=== PATIENT | male | born 1990 | race Caucasian/White ===

== ENCOUNTER 2017-07-21 05:48 | Emergency (ER) | payer OTHER, BC ==
[~2017-07-21] VITALS: Ht 175.3 cm; Wt 68.0 kg
== END 2017-07-21 07:21 | disposition home or self-care (01) ==
LOC: ED 05:48
PROC: 0HQ1XZZ Repair Face Skin, External Approach (ICD-10-PCS; principal; 2017-07-21)
DX: S01.81XA Laceration without foreign body of other part of head, initial encounter (principal); S61.219A Laceration without foreign body of unspecified finger without damage to nail, initial encounter; F17.200 Nicotine dependence, unspecified, uncomplicated; Z88.0 Allergy status to penicillin; V40.5XXA Car driver injured in collision with pedestrian or animal in traffic accident, initial encounter
CPT/HCPCS: 12011; 70160; 73130; 99283